=== PATIENT | male | born 2005 | race Caucasian/White ===

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

== ENCOUNTER 2025-04-01 13:16 | Emergency (ER) | payer SELFPAY ==
[~2025-04-01] VITALS: Ht 177.8 cm; Wt 63.5 kg
== END 2025-04-01 15:09 | disposition home or self-care (01) ==
LOC: ED 13:16
DX: S96.911A Strain of unspecified muscle and tendon at ankle and foot level, right foot, initial encounter (principal); X50.1XXA Overexertion from prolonged static or awkward postures, initial encounter; Y93.67 Activity, basketball; Y92.89 Other specified places as the place of occurrence of the external cause; Y99.8 Other external cause status